=== PATIENT | female | born 1960 | race Caucasian/White ===

== ENCOUNTER → 2023-07-04 08:01 | Outpatient (REF) | payer BC, SELFPAY | LOC: DHCBS MAIN 08:01 | PROVIDERS: ATTENDING PHYSICIAN Internal Medicine Cardiovascular Disease; FAMILY PHYSICIAN Physician Assistant Medical | DX: I42.9 Cardiomyopathy, unspecified (principal); I49.3 Ventricular premature depolarization | CPT/HCPCS: 93306 ==

== ENCOUNTER → 2023-07-31 07:11 | Outpatient (REF) | payer BC, SELFPAY | LOC: RCS 07:11 | PROVIDERS: ATTENDING PHYSICIAN Internal Medicine Cardiovascular Disease; FAMILY PHYSICIAN Physician Assistant Medical | DX: I51.7 Cardiomegaly (principal); I42.9 Cardiomyopathy, unspecified | CPT/HCPCS: 93308; Q9957 ==